=== PATIENT | male | born 1990 | race Caucasian/White ===

== ENCOUNTER 2017-01-02 12:14 | Emergency (ER) | payer SELFPAY ==
[~2017-01-02] VITALS: Ht 180.3 cm; Wt 82.5 kg
[2017-01-02 12:24] VITALS: TEMP 97.4
[2017-01-02 13:47] LABS: BASO # 0.1 (0.0-0.2); BASO % 0.9 % (0.0-2.0); EOS # 0.3 (0.0-0.7); EOS % 4.3 % (0-4.0); GRAN # 3.5 (1.4-6.5); GRAN % 59.9 % (42.2-75.2); HEMATOCRIT 39.7 % (42.0-52.0); HEMOGLOBIN 12.8 g/dl (13.5-18.0); LYMPH # 1.6 (1.2-3.4); LYMPH % 27.9 % (20.0-51.0); MEAN CELL VOLUME 74 fl (80.0-100.0); MEAN CORPUSCULAR HEMOGLOBIN 24 pg (27.0-31.0); MEAN CORPUSCULAR HGB CONC 32 g/dl (33.0-37.0); MEAN PLATELET VOLUME 10.2 fl (7.4-10.4); MONO # 0.4 (0.1-0.6); MONO % 6.8 % (1.7-9.3); PLATELET COUNT 241 K/mm3 (130-400); RED BLOOD COUNT 5.34 M/mm3 (4.20-5.60); REDCELL DISTRIBUTION WIDTH-CV 14.5 % (11.5-14.5); WHITE BLOOD COUNT 5.8 K/mm3 (4.8-10.8)
[2017-01-02 14:07] LABS: BILIRUBIN,TOTAL 0.7 mg/dL (0.0-1.0); CREATININE, serum 0.85 mg/dL (0.66-1.25); POTASSIUM 3.8 mmol/L (3.4-5.0); TOTAL PROTEIN 6.9 gm/dL (6.4-8.2)
[2017-01-02] MEDS ORDERED: FLEXERIL 1010 MG/TAB PO (14:29)
[2017-01-02 14:38] VITALS: BP 111/71; PULSE 63
== END 2017-01-02 14:38 | disposition home or self-care (01) ==
LOC: COL.ER 12:14
PROVIDERS: Emergency Medicine
DX: R07.9 Chest pain, unspecified (principal); M54.9 Dorsalgia, unspecified
CPT/HCPCS: J1885

== ENCOUNTER 2019-05-21 11:37 | Emergency (ER) | payer BC ==
[~2019-05-21] VITALS: Ht 180.3 cm; Wt 86.4 kg
[~2019-05-21 11:37] MED LIST: FLEXERIL 1010 MG/TAB PO
[2019-05-21] MEDS ORDERED: BACTRIM DS 8001 TAB PO (13:05)
[2019-05-21] MEDS ORDERED: NORCO 325 MG-51 TAB PO (13:05)
[2019-05-21 13:40] VITALS: BP 128/79; PULSE 82; TEMP 97.6
== END 2019-05-21 13:46 | disposition home or self-care (01) ==
LOC: COL.ER 11:37
DX: L02.214 Cutaneous abscess of groin (principal); F17.210 Nicotine dependence, cigarettes, uncomplicated

== ENCOUNTER 2020-03-02 11:50 | Emergency (ER) | payer BC ==
[~2020-03-02] VITALS: Ht 180.3 cm; Wt 88.6 kg
[~2020-03-02 11:50] MED LIST changes: +BACTRIM DS 8001 TAB PO; +NORCO 325 MG-51 TAB PO
[2020-03-02 12:01] VITALS: TEMP 97.9
[2020-03-02 12:41] LABS: BASO # 0.1 (0.0-0.2); BASO % 0.6 % (0.0-2.0); EOS # 0.2 (0.0-0.7); EOS % 2.6 % (0-4.0); GRAN # 6.3 (1.4-6.5); HEMATOCRIT 41.1 % (42.0-52.0); HEMOGLOBIN 13.2 g/dl (13.5-18.0); LYMPH # 1.6 (1.2-3.4); LYMPH % 18.2 % (20.0-51.0); MEAN CELL VOLUME 75 fl (80.0-100.0); MEAN CORPUSCULAR HEMOGLOBIN 24 pg (27.0-31.0); MEAN CORPUSCULAR HGB CONC 32 g/dl (33.0-37.0); MEAN PLATELET VOLUME 10.1 fl (7.4-10.4); MONO # 0.8 (0.1-0.6); MONO % 8.4 % (1.7-9.3); PLATELET COUNT 276 K/mm3 (130-400); RED BLOOD COUNT 5.51 M/mm3 (4.20-5.60); REDCELL DISTRIBUTION WIDTH-CV 14.3 % (11.5-14.5)
[2020-03-02 12:52] LABS: C-REACTIVE PROTEIN 1.8 mg/dL (0.0-0.9); CALCIUM 8.8 mg/dL (8.4-10.2); CREATININE, serum 0.92 (0.66-1.25); POTASSIUM 3.9 mmol/L (3.4-5.0)
[2020-03-02] MEDS ORDERED: DOXYCYCLINE 10100 MG PO (14:02)
[2020-03-02] MEDS ORDERED: CEPHALEXIN500 M1 PO (14:02)
[2020-03-02 14:29] VITALS: BP 119/76; PULSE 72
== END 2020-03-02 14:27 | disposition home or self-care (01) ==
LOC: COL.ER 11:50
PROVIDERS: Emergency Medicine
DX: L02.215 Cutaneous abscess of perineum (principal); L03.315 Cellulitis of perineum
CPT/HCPCS: J2270; J2543